=== PATIENT | male | born 1950 | race Caucasian/White ===

== ENCOUNTER 2017-09-02 15:06 | Emergency (ER) | payer OTHER, BC ==
[~2017-09-02] VITALS: Ht 165.1 cm; Wt 57.6 kg
== END 2017-09-02 19:57 | disposition designated cancer center or children's hospital (05) ==
LOC: ER 15:06
DX: I62.01 Nontraumatic acute subdural hemorrhage (principal); S19.89XA Other specified injuries of other specified part of neck, initial encounter; R42 Dizziness and giddiness; W18.09XA Striking against other object with subsequent fall, initial encounter; Y93.89 Activity, other specified; Y92.59 Other trade areas as the place of occurrence of the external cause; Y99.8 Other external cause status